=== PATIENT | male | born 1965 | race Caucasian/White ===

== ENCOUNTER 2017-10-18 08:42 | Inpatient (IN) | payer OTHER ==
[~2017-10-18] VITALS: Ht 182.9 cm; Wt 128.4 kg
[2017-10-18 08:46] VITALS: Ht 182.9 cm; Wt 128.4 kg
[2017-10-18 09:47] LABS: BASOPHIL % 0.3 % (0-2); PLATELET COUNT 163 x10^3mcL (130-400)
[2017-10-18 09:51] LABS: RED CELL DISTRIBUTION WIDTH 14.8 % (11.5-14.5)
[2017-10-18 09:59] LABS: CALCIUM 9.1 mg/dL (8.5-10.1); CARBON DIOXIDE 24.5 mmol/L (21-32); CHLORIDE SERUM 107 mmol/L (98-107); CREATININE SERUM 0.7 mg/dL (0.7-1.3); GFR1 > 60 mL/min; GLUCOSE SERUM 119 mg/dL (74-106); POTASSIUM SERUM 4.1 mmol/L (3.5-5.1); SODIUM SERUM 143 mmol/L (136-145)
[2017-10-18 10:04] LABS: ALBUMIN 3.8 g/dL (3.4-5.0); ALKALINE PHOSPHATASE 88 U/L (46-116); ALT/SGPT 26 U/L (16-63); AST/SGOT 16 U/L (15-37); TOTAL PROTEIN, SERUM 7.3 g/dL (6.4-8.2)
[2017-10-18 11:20] LABS: microscopic required? NO
[2017-10-18 11:35] LABS: CHOLESTEROL/HDL RATIO 3.7; PHOSPHOROUS 2.6 mg/dL (2.5-4.9)
[2017-10-18 11:38] LABS: urine erythrocyte NEGATIVE (NEGATIVE)
[2017-10-18 11:41] LABS: T3 TOTAL 1.01 ng/mL
[2017-10-18 11:43] LABS: FREE T4 0.88 ng/dL (0.76-1.46); FREE THYROXINE INDEX 2.4 ug/dL (1.4-4.5); T4(THYROXINE) 7.6 ug/dL (4.7-13.3)
[2017-10-18] MEDS ORDERED: LORAZEPAM1 MG PO (11:44)
[2017-10-18] MEDS ORDERED: ASPIR 8181 MG PO (11:44)
[2017-10-18] MEDS ORDERED: NITROGLYCERIN0.4 MG SL (11:45)
[2017-10-18] MEDS ORDERED: LASIX20 MG PO (11:45)
[2017-10-18] MEDS ORDERED: SIMVASTATIN20 M1 PO (11:45)
[2017-10-18] MEDS ORDERED: CLOPIDOGREL75 M1 PO (11:45)
[2017-10-18] MEDS ORDERED: METOPROLOL SUCC50 M2 PO (11:45)
[2017-10-18] MEDS ORDERED: NORCO1 TA2 PO (11:46)
[2017-10-18 11:53] LABS: AMPHETAMINE QUAL UR NONE DETECTED (NEG <=1000)
[2017-10-18 12:03] VITALS: BP 142/83
[2017-10-18 13:12] VITALS: BP 142/83
[2017-10-18 18:15] VITALS: BP 131/98
[2017-10-18 21:43] VITALS: BP 125/86
[2017-10-19 05:52] VITALS: BP 120/90
[2017-10-19 06:50] LABS: BASOPHIL % 0.5 % (0-2); PLATELET COUNT 156 x10^3mcL (130-400)
[2017-10-19 06:54] LABS: CALCIUM 8.8 mg/dL (8.5-10.1); CARBON DIOXIDE 26.8 mmol/L (21-32); CHLORIDE SERUM 109 mmol/L (98-107); CREATININE SERUM 0.8 mg/dL (0.7-1.3); GFR1 > 60 mL/min; GLUCOSE SERUM 97 mg/dL (74-106); POTASSIUM SERUM 3.9 mmol/L (3.5-5.1); SODIUM SERUM 144 mmol/L (136-145)
[2017-10-19 08:45] VITALS: BP 138/84
[2017-10-19 10:20] VITALS: BP 120/89
[2017-10-19 13:20] VITALS: BP 110/85
== END 2017-10-19 16:15 | disposition left against medical advice (07) | DRG 241 ==
LOC: ED 08:42 → DU 11:04
PROVIDERS: Emergency Medicine; Family Medicine; Internal Medicine Gastroenterology
PROC: 0DB68ZX Excision of Stomach, Via Natural or Artificial Opening Endoscopic, Diagnostic (ICD-10-PCS; principal; 2017-10-19 08:00)
PROC: 0DJD8ZZ Inspection of Lower Intestinal Tract, Via Natural or Artificial Opening Endoscopic (ICD-10-PCS; 2017-10-19 08:00)
DX: K25.4 Chronic or unspecified gastric ulcer with hemorrhage (principal); N17.0 Acute kidney failure with tubular necrosis; K64.8 Other hemorrhoids; K62.5 Hemorrhage of anus and rectum; I10 Essential (primary) hypertension; I25.10 Atherosclerotic heart disease of native coronary artery without angina pectoris; Z53.21 Procedure and treatment not carried out due to patient leaving prior to being seen by health care provider; K43.9 Ventral hernia without obstruction or gangrene; N20.0 Calculus of kidney; G89.29 Other chronic pain; M54.9 Dorsalgia, unspecified; Z91.041 Radiographic dye allergy status; I25.2 Old myocardial infarction; Z95.5 Presence of coronary angioplasty implant and graft
CPT/HCPCS: 43235; 45378; 84439; 90732; J1200; J1610; J2060; J2250; J2310; J3010; J3490; J7030; Q0092

== ENCOUNTER 2017-10-25 11:41 | Inpatient (IN) | payer OTHER ==
[~2017-10-25] VITALS: Ht 182.9 cm; Wt 129.1 kg
[~2017-10-25 11:41] MED LIST: ASPIR 8181 MG PO; CLOPIDOGREL75 M1 PO; LASIX20 MG PO; LORAZEPAM1 MG PO; METOPROLOL SUCC50 M2 PO; NITROGLYCERIN0.4 MG SL; NORCO1 TA2 PO; SIMVASTATIN20 M1 PO
[2017-10-25 11:48] VITALS: Ht 182.9 cm; Wt 129.1 kg
[2017-10-25 12:14] LABS: BASOPHIL % 0.8 % (0-2); PLATELET COUNT 178 x10^3mcL (130-400)
[2017-10-25 12:16] LABS: RED CELL DISTRIBUTION WIDTH 15.1 % (11.5-14.5)
[2017-10-25 12:30] LABS: CALCIUM 8.6 mg/dL (8.5-10.1); CARBON DIOXIDE 26.9 mmol/L (21-32); CHLORIDE SERUM 105 mmol/L (98-107); CREATININE SERUM 0.9 mg/dL (0.7-1.3); GFR1 > 60 mL/min; GLUCOSE SERUM 101 mg/dL (74-106); POTASSIUM SERUM 3.8 mmol/L (3.5-5.1); SODIUM SERUM 141 mmol/L (136-145)
[2017-10-25 13:47] LABS: microscopic required? NO
[2017-10-25 13:58] LABS: UA SPECIFIC GRAVITY >=1.030 (1.005-1.035); urine erythrocyte NEGATIVE (NEGATIVE)
[2017-10-25 14:13] LABS: AMPHETAMINE QUAL UR NONE DETECTED (NEG <=1000)
[2017-10-25 14:42] LABS: CHOLESTEROL/HDL RATIO 4.3; PHOSPHOROUS 3.2 mg/dL (2.5-4.9)
[2017-10-25 14:46] VITALS: BP 121/85
[2017-10-25 16:58] VITALS: BP 120/80
[2017-10-25 22:09] VITALS: BP 124/79
[2017-10-26 05:17] LABS: BASOPHIL % 0.7 % (0-2); PLATELET COUNT 164 x10^3mcL (130-400)
[2017-10-26 05:35] LABS: CALCIUM 8.5 mg/dL (8.5-10.1); CARBON DIOXIDE 27.7 mmol/L (21-32); CHLORIDE SERUM 108 mmol/L (98-107); CREATININE SERUM 0.8 mg/dL (0.7-1.3); GFR1 > 60 mL/min; GLUCOSE SERUM 97 mg/dL (74-106); PHOSPHOROUS 3.5 mg/dL (2.5-4.9); SODIUM SERUM 143 mmol/L (136-145)
[2017-10-26 06:54] VITALS: BP 140/96
[2017-10-26] MEDS ORDERED: ZES5 PO (09:30)
[2017-10-26 10:03] VITALS: BP 101/60
[2017-10-26 14:12] VITALS: BP 108/71
[2017-10-26 14:37] VITALS: BP 108/71
== END 2017-10-26 14:45 | disposition home or self-care (01) | DRG 203 ==
LOC: ED 11:41 → DU 13:20 → EDBEDREQ 13:24 → DU 14:17
PROVIDERS: Emergency Medicine; Family Medicine
DX: M94.0 Chondrocostal junction syndrome [Tietze] (principal); N17.0 Acute kidney failure with tubular necrosis; K57.90 Diverticulosis of intestine, part unspecified, without perforation or abscess without bleeding; I25.10 Atherosclerotic heart disease of native coronary artery without angina pectoris; F41.9 Anxiety disorder, unspecified; E02 Subclinical iodine-deficiency hypothyroidism; R73.03 Prediabetes; E86.0 Dehydration; E78.5 Hyperlipidemia, unspecified; N20.0 Calculus of kidney; E87.8 Other disorders of electrolyte and fluid balance, not elsewhere classified; I10 Essential (primary) hypertension; I25.2 Old myocardial infarction; Z91.041 Radiographic dye allergy status; Z95.5 Presence of coronary angioplasty implant and graft
CPT/HCPCS: 83880; J1885; J3010; J3490; J7030

== ENCOUNTER 2019-08-24 05:23 | Emergency (ER) | payer OTHER ==
[~2019-08-24] VITALS: Ht 182.9 cm; Wt 133.8 kg
[~2019-08-24 05:23] MED LIST changes: +ZES5 PO
[2019-08-24 05:28] VITALS: Ht 182.9 cm; Wt 133.8 kg
[2019-08-24 07:05] LABS: BASOPHIL % 1.6 % (0-2); PLATELET COUNT 171 x10^3mcL (130-400)
[2019-08-24 07:06] LABS: RED CELL DISTRIBUTION WIDTH 14.9 % (11.5-14.5)
[2019-08-24 07:44] LABS: CALCIUM 8.9 mg/dL (8.5-10.1); CARBON DIOXIDE 31.8 mmol/L (21-32); CHLORIDE SERUM 102 mmol/L (98-107); GFR1 > 60 mL/min; GLUCOSE SERUM 107 mg/dL (74-106); POTASSIUM SERUM 4.1 mmol/L (3.5-5.1); SODIUM SERUM 142 mmol/L (136-145)
[2019-08-24 07:47] LABS: ALBUMIN 4.2 g/dL (3.4-5.0); ALKALINE PHOSPHATASE 82 U/L (46-116); ALT/SGPT 54 U/L (16-63); AMYLASE 46 U/L (25-115); AST/SGOT 50 U/L (15-37); BILIRUBIN TOTAL 1.4 mg/dL (0.20-1.00); LIPASE 83 IU/L (73-393); TOTAL PROTEIN, SERUM 8.1 g/dL (6.4-8.2)
[2019-08-24 10:06] VITALS: BP 144/96
== END 2019-08-24 10:06 | disposition home or self-care (01) ==
LOC: ED 05:23
PROVIDERS: Specialist
DX: K76.0 Fatty (change of) liver, not elsewhere classified (principal); G89.29 Other chronic pain; M54.5 Low back pain; E66.01 Morbid (severe) obesity due to excess calories; D72.829 Elevated white blood cell count, unspecified
CPT/HCPCS: 87804; J1885; J3010; J7030; Q0092

== ENCOUNTER 2019-08-25 10:04 | Emergency (ER) | payer OTHER ==
[~2019-08-25] VITALS: Ht 182.9 cm; Wt 140.6 kg
[2019-08-25 10:19] VITALS: Ht 182.9 cm; Wt 140.6 kg
[2019-08-25 11:23] LABS: CALCIUM 8.6 mg/dL (8.5-10.1); CARBON DIOXIDE 27.9 mmol/L (21-32); CHLORIDE SERUM 103 mmol/L (98-107); CREATININE SERUM 0.9 mg/dL (0.7-1.3); GFR1 > 60 mL/min; GLUCOSE SERUM 113 mg/dL (74-106); POTASSIUM SERUM 3.9 mmol/L (3.5-5.1); SODIUM SERUM 139 mmol/L (136-145)
[2019-08-25 11:30] LABS: ALBUMIN 3.9 g/dL (3.4-5.0); ALKALINE PHOSPHATASE 76 U/L (46-116); ALT/SGPT 51 U/L (16-63); AST/SGOT 41 U/L (15-37); BILIRUBIN TOTAL 1.8 mg/dL (0.20-1.00); TOTAL PROTEIN, SERUM 7.6 g/dL (6.4-8.2)
[2019-08-25 11:43] LABS: BASOPHIL % 0.5 % (0-2); PLATELET COUNT 179 x10^3mcL (130-400); RED CELL DISTRIBUTION WIDTH 14.8 % (11.5-14.5)
[2019-08-25 12:40] VITALS: BP 142/79
== END 2019-08-25 12:43 | disposition home or self-care (01) ==
LOC: ED 10:04
PROVIDERS: Specialist
DX: D72.829 Elevated white blood cell count, unspecified (principal); I10 Essential (primary) hypertension; Z88.1 Allergy status to other antibiotic agents
CPT/HCPCS: 36415